=== PATIENT | male | born 1975 | race Caucasian/White ===

== ENCOUNTER 2021-09-13 15:51 | Emergency (ER) | payer OTHER ==
[~2021-09-13] VITALS: Ht 193 cm; Wt 125.0 kg
[2021-09-13] MEDS ORDERED: TETANUS, DIPHTHERIA, PERTUSSIS VAC/PF 0.5ML (>10YR OLD) IM ONE (16:45)
[2021-09-13] MEDS ORDERED: ACETAMINOPHEN 325MG TABLET PO ONE (18:15)
[2021-09-13] MEDS ORDERED: LIDOCAINE HCL/EPINEPHRINE 1%-EPI 1:100,000 50 ML VIAL INFIL ONE (18:15)
[2021-09-13] MEDS ORDERED: KETOROLAC 15MG/ML VIAL IM ONE (18:30)
[2021-09-13 18:37] VITALS: BP 138/89
== END 2021-09-13 18:39 | disposition home or self-care (01) ==
LOC: ER 15:51
DX: S01.01XA Laceration without foreign body of scalp, initial encounter (principal); W18.39XA Other fall on same level, initial encounter; Y93.89 Activity, other specified; Y92.89 Other specified places as the place of occurrence of the external cause; Y99.8 Other external cause status
CPT/HCPCS: 12001; 70450; 72125; 90471; 90715; 93005; 96372; 99284; J1885